=== PATIENT | female | born 1980 | race Caucasian/White ===

== ENCOUNTER 2024-07-01 05:30 | Day surgery (SDC) | payer OTHER ==
[2024-07-01] MEDS: Dextrose 5%-0.45% NaCl 1,000 ML IV SCH (05:55)
[2024-07-01] MEDS ORDERED: Midazolam 1 MG/ML 2 ML SDV ONE (06:09)
[2024-07-01] MEDS ORDERED: fentaNYL 100 MCG/2 ML SDV ONE (06:10)
[2024-07-01] MEDS ORDERED: Midazolam 1 MG/ML 2 ML SDV IV ONE (06:10)
[2024-07-01] MEDS ORDERED: fentaNYL 100 MCG/2 ML SDV IV ONE (06:10)
[2024-07-01] MEDS: fentaNYL 100 MCG/2 ML SDV IV ONE ×4 (06:27→06:35)
[2024-07-01] MEDS: Midazolam 1 MG/ML 2 ML SDV IV ONE ×6 (06:29→06:32)
== END 2024-07-01 08:12 | disposition home or self-care (01) ==
LOC: DL.ENDO 05:30
PROVIDERS: ATTEND Internal Medicine Gastroenterology
DX: K57.31 Diverticulosis of large intestine without perforation or abscess with bleeding (principal); Z88.2 Allergy status to sulfonamides; Z88.0 Allergy status to penicillin
CPT/HCPCS: 45378; 81025; J2250; J3010; J7799